=== PATIENT | female | born 1950 | race Caucasian/White ===

== ENCOUNTER 2017-10-07 06:56 | Inpatient (IN) | payer OTHER ==
[~2017-10-07] VITALS: Ht 167.6 cm; Wt 95.5 kg
[~2017-10-07 06:56] MED LIST: ABILIFY5 MG PO; ACYCLOVIR800 MG PO; CLARITIN,ALAVAR10 MG PO; ELIQUIS5 MG PO; EYE ITCH RELIEF5 ML BOTH EYES; FLONASE16 G1 BOTH NARES; GABAPENTIN300 MG PO; KEFLEX500 MG PO; LEVAQUIN750 MG PO; LEVOFLOXACIN750 MG PO; LEVOTHYROXINE50 MCG PO; LISINOPRIL40 MG PO; LORAZEPAM0.5 MG PO; METOPROLOL TART50 MG PO; MIRALAX17 GM PO; MIRALAX255 GM PO; MORPHINE SULFAT30 M2 PO; PREDNISONE; PRINIVIL40 MG PO; RISPERDAL1 MG PO; WELLBUTRIN XL300 MG PO
[2017-10-07 07:38] LABS: BASE EXCESS 1.8 mEq/L (-3 to +3); BICARBONATE 24.4 mEq/L (22-26); CARBOXY HGB 1.9 % (0-5); METHEMOGLOBIN 1.2 % (0-1.5); PO2 56 mm Hg (80-100)
[2017-10-07 07:39] LABS: COMMENTS - BLOOD GASES +C; DEVICE NC; O2 FLOW 1.5 L/MIN; PCO2 32 mm Hg (35-45); SITE RR +A; TOTAL RESP RATE 38 resp/min; pH 7.49 (7.35-7.45)
[2017-10-07 07:44] LABS: BASOPHIL (%) 0.2 % (0-1); EOSINOPHIL (%) 0.1 % (0-5); HEMATOCRIT 42.8 % (36.0-46.0); HEMOGLOBIN 14.8 G/DL (11.9-15.5); IMMATURE GRANULOCYTE (%) 0.3 % (0.0-0.7); LYMPHOCYTE (%) 5.1 % (15-42); LYMPHOCYTE COUNT 0.9 K/uL (1.0-2.8); MCH 29.6 PG (29.0-34.0); MCHC 34.6 G/DL (30.0-36.0); MCV 85.6 FL (83-99); MONOCYTE (%) 2.3 % (3-12); MONOCYTE COUNT 0.4 K/uL (0-0.8); NEUTROPHIL COUNT 16.3 K/uL (1.8-6.4); PLATELET COUNT 337 K/uL (156-360); RBC DIS.WIDTH-SD 37.5 % (39-53); WHITE BLOOD COUNT 17.7 K/uL (4.1-10.2)
[2017-10-07 08:06] LABS: TROP-I INTERPRETATION NEGATIVE; TROPONIN-I < 0.01 ng/mL (0.0-0.30)
[2017-10-07 08:15] LABS: ALBUMIN 4.3 G/DL (3.2-4.8); CHLORIDE 99 MEQ/L (99-109); POTASSIUM 3.8 MEQ/L (3.7-5.4); SODIUM 136 MEQ/L (136-147); TOTAL BILIRUBIN 0.6 MG/DL (0.0-1.0)
[2017-10-07 08:20] LABS: APPEARANCE CLEAR ((CLEAR)); COLOR YELLOW ((YELLOW))
[2017-10-07 08:21] LABS: ALKALINE PHOSPHATASE 78 IU/L (3-129); ALT (GPT) 15 IU/L (3-49); AST (GOT) 21 IU/L (2-34); GFR ESTIMATE (CALCULATED) > 59 mL/min/; GLUCOSE 121 mg/dL (70-99); TOTAL PROTEIN 7.3 G/DL (6.4-8.3); UREA NITROGEN (BUN) 12 mg/dL (9-23)
[2017-10-07 08:22] LABS: BILIRUBIN NEGATIVE; BLOOD NEGATIVE; GLUCOSE (STRIP) NEGATIVE; KETONES NEGATIVE; LEUKOCYTES NEGATIVE; NITRITE NEGATIVE; PROTEIN (STRIP) NEGATIVE; UCUL ADDED? NO; UROBILINOGEN 0.2 MG/DL (0.2-1.0)
[2017-10-07] MEDS ORDERED: ELIQUIS5 MG PO (10:59)
[2017-10-07] MEDS ORDERED: HYDROCHLOROTHIA25 MG PO (11:11)
[2017-10-07] MEDS ORDERED: LIDOCAINE HCL35 GM TP (11:12)
[2017-10-07] MEDS ORDERED: NORVASC10 MG PO (11:13)
[2017-10-07] MEDS ORDERED: MIRALAX17 GM PO (11:19)
[2017-10-07 13:24] VITALS: BP 107/57
[2017-10-07 16:03] VITALS: BP 103/54
[2017-10-07 20:31] VITALS: BP 118/58
[2017-10-07 23:48] VITALS: BP 120/58
[2017-10-08 03:32] VITALS: BP 121/59
[2017-10-08 06:14] LABS: CREATININE 0.7 MG/DL (0.6-1.3); GFR ESTIMATE (CALCULATED) > 59 mL/min/; GLUCOSE 101 mg/dL (70-99); POTASSIUM 3.1 MEQ/L (3.7-5.4); UREA NITROGEN (BUN) 7 mg/dL (9-23)
[2017-10-08 06:23] LABS: INTER. NORMALIZED RATIO 1.3
[2017-10-08 06:24] LABS: CHLORIDE 111 MEQ/L (99-109); SODIUM 144 MEQ/L (136-147)
[2017-10-08 06:42] LABS: HEMATOCRIT 34.2 % (36.0-46.0); HEMOGLOBIN 11.8 G/DL (11.9-15.5); MCH 29.9 PG (29.0-34.0); MCHC 34.5 G/DL (30.0-36.0); MCV 86.8 FL (83-99); RBC DIS.WIDTH-CV 12.4 % (11.8-14.6); RBC DIS.WIDTH-SD 39.5 % (39-53); RED BLOOD COUNT 3.94 M/uL (3.80-5.20); WHITE BLOOD COUNT 15.3 K/uL (4.1-10.2)
[2017-10-08 07:05] VITALS: BP 121/58
[2017-10-08 07:49] LABS: PLAT.SUFFICIENCY ADEQUATE
[2017-10-08 07:50] LABS: PLATELET COUNT 221 K/uL (156-360)
[2017-10-08 11:38] VITALS: BP 139/74
[2017-10-08 15:45] VITALS: BP 130/68
[2017-10-08 19:45] VITALS: BP 132/58
[2017-10-08 23:34] VITALS: BP 122/62
[2017-10-09 04:10] VITALS: BP 127/70
[2017-10-09 06:09] LABS: HEMATOCRIT 35.7 % (36.0-46.0); MCH 29.2 PG (29.0-34.0); MCHC 33.6 G/DL (30.0-36.0); MCV 86.9 FL (83-99); PLATELET COUNT 259 K/uL (156-360); RBC DIS.WIDTH-CV 12.8 % (11.8-14.6); RBC DIS.WIDTH-SD 40.6 % (39-53); RED BLOOD COUNT 4.11 M/uL (3.80-5.20); WHITE BLOOD COUNT 13.2 K/uL (4.1-10.2)
[2017-10-09 06:34] LABS: CHLORIDE 113 MEQ/L (99-109); CREATININE 0.7 MG/DL (0.6-1.3); GFR ESTIMATE (CALCULATED) > 59 mL/min/; GLUCOSE 94 mg/dL (70-99); POTASSIUM 3.3 MEQ/L (3.7-5.4); SODIUM 147 MEQ/L (136-147); UREA NITROGEN (BUN) 6 mg/dL (9-23)
[2017-10-09 07:45] VITALS: BP 133/60
[2017-10-09 10:57] VITALS: BP 118/64
[2017-10-09 14:55] VITALS: BP 117/68
[2017-10-10 00:45] VITALS: BP 122/61
[2017-10-10 06:15] LABS: HEMOGLOBIN 11.3 G/DL (11.9-15.5); MCH 29.2 PG (29.0-34.0); MCHC 33.2 G/DL (30.0-36.0); MCV 87.9 FL (83-99); PLATELET COUNT 266 K/uL (156-360); RBC DIS.WIDTH-CV 12.8 % (11.8-14.6); RBC DIS.WIDTH-SD 41.3 % (39-53); RED BLOOD COUNT 3.87 M/uL (3.80-5.20); WHITE BLOOD COUNT 12.3 K/uL (4.1-10.2)
[2017-10-10 06:35] LABS: CHLORIDE 115 MEQ/L (99-109); CREATININE 0.8 MG/DL (0.6-1.3); GFR ESTIMATE (CALCULATED) > 59 mL/min/; GLUCOSE 82 mg/dL (70-99); POTASSIUM 3.7 MEQ/L (3.7-5.4); SODIUM 147 MEQ/L (136-147); UREA NITROGEN (BUN) 9 mg/dL (9-23)
[2017-10-10 09:04] VITALS: BP 134/61
[2017-10-10 15:52] VITALS: BP 127/69
[2017-10-10 20:13] LABS: TROP-I INTERPRETATION NEGATIVE; TROPONIN-I < 0.01 ng/mL (0.0-0.30)
[2017-10-10 21:57] VITALS: BP 132/79
[2017-10-11] VITALS: BP 141/75
[2017-10-11 06:49] LABS: HEMATOCRIT 36.4 % (36.0-46.0); HEMOGLOBIN 12.1 G/DL (11.9-15.5); MCHC 33.2 G/DL (30.0-36.0); MCV 87.3 FL (83-99); PLATELET COUNT 282 K/uL (156-360); RBC DIS.WIDTH-CV 12.6 % (11.8-14.6); RBC DIS.WIDTH-SD 40.4 % (39-53); RED BLOOD COUNT 4.17 M/uL (3.80-5.20); WHITE BLOOD COUNT 8.8 K/uL (4.1-10.2)
[2017-10-11 06:53] LABS: CHLORIDE 113 MEQ/L (99-109); CREATININE 0.8 MG/DL (0.6-1.3); GFR ESTIMATE (CALCULATED) > 59 mL/min/; GLUCOSE 82 mg/dL (70-99); POTASSIUM 3.8 MEQ/L (3.7-5.4); SODIUM 145 MEQ/L (136-147); UREA NITROGEN (BUN) 12 mg/dL (9-23)
[2017-10-11 07:15] VITALS: BP 121/62
[2017-10-11 07:41] LABS: TROP-I INTERPRETATION NEGATIVE; TROPONIN-I < 0.01 ng/mL (0.0-0.30)
[2017-10-11] MEDS ORDERED: DUONEB 2.5-0.5 M3 ML AEROSOL ×2 (11:29→11:38)
[2017-10-11] MEDS ORDERED: LEVOFLOXACIN750 MG PO ×2 (11:29→11:38)
[2017-10-11] MEDS ORDERED: PREDNISONE10 MG PO (11:29)
[2017-10-11 15:38] VITALS: BP 150/69
[2017-10-11 23:53] VITALS: BP 129/72
[2017-10-12 06:57] LABS: HEMATOCRIT 37.5 % (36.0-46.0); HEMOGLOBIN 12.6 G/DL (11.9-15.5); MCHC 33.6 G/DL (30.0-36.0); MCV 86.4 FL (83-99); PLATELET COUNT 289 K/uL (156-360); RBC DIS.WIDTH-CV 12.5 % (11.8-14.6); RBC DIS.WIDTH-SD 39.9 % (39-53); RED BLOOD COUNT 4.34 M/uL (3.80-5.20); WHITE BLOOD COUNT 9.2 K/uL (4.1-10.2)
[2017-10-12 07:14] LABS: CHLORIDE 110 MEQ/L (99-109); CREATININE 0.9 MG/DL (0.6-1.3); GFR ESTIMATE (CALCULATED) > 59 mL/min/; GLUCOSE 85 mg/dL (70-99); POTASSIUM 3.6 MEQ/L (3.7-5.4); SODIUM 144 MEQ/L (136-147); UREA NITROGEN (BUN) 16 mg/dL (9-23)
[2017-10-12 07:59] VITALS: BP 127/84
[2017-10-12] MEDS ORDERED: DUONEB 2.5-0.5 M3 ML AEROSOL (10:06)
== END 2017-10-12 13:24 | disposition home health service (06) | DRG 871 ==
LOC: EME → EDBD 06:56 → EDOF 09:28 → 5EAST 09:28 → ENRESERV 09:33 → 5EAST 12:52
PROVIDERS: Emergency Medicine; Internal Medicine; Internal Medicine Infectious Disease
DX: A41.9 Sepsis, unspecified organism (principal); J96.21 Acute and chronic respiratory failure with hypoxia; J18.9 Pneumonia, unspecified organism; E87.3 Alkalosis; J44.0 Chronic obstructive pulmonary disease with (acute) lower respiratory infection; J44.1 Chronic obstructive pulmonary disease with (acute) exacerbation; F11.20 Opioid dependence, uncomplicated; R65.20 Severe sepsis without septic shock; F41.8 Other specified anxiety disorders; G89.29 Other chronic pain; I10 Essential (primary) hypertension; M06.9 Rheumatoid arthritis, unspecified; M19.90 Unspecified osteoarthritis, unspecified site; E66.9 Obesity, unspecified; Z68.33 Body mass index [BMI] 33.0-33.9, adult; Z77.22 Contact with and (suspected) exposure to environmental tobacco smoke (acute) (chronic); Z86.711 Personal history of pulmonary embolism; Z79.01 Long term (current) use of anticoagulants; Z86.718 Personal history of other venous thrombosis and embolism; Z91.5 Personal history of self-harm; Z79.51 Long term (current) use of inhaled steroids
CPT/HCPCS: 36600; 70450; 71045; 80048; 80053; 81003; 82803; 83605; 83880; 84484; 85025; 85027; 85610; 85652; 85730; 87040; 87070; 87205; 87449; 93005; 94640; 94640 76; 94760; 94799; 99202; 99281; 99285; J0456; J0696; J1940; J2310; J7030; J7040; J7512